=== PATIENT | female | born 1985 | race Caucasian/White ===

== ENCOUNTER 2016-11-17 11:03 | Outpatient (CLI) | payer MEDICAID ==
[2016-11-17 12:34] LABS: ABSOLUTE LYMPHOCYTES (AUTO) 1.5 10^3/uL (0.5-4.7); ABSOLUTE MONOCYTES (AUTO) 0.5 10^3/uL (0.1-1.4); ABSOLUTE NEUT (AUTO) 5.5 10^3/uL (1.7-8.2); BASOPHILS % (AUTO) 0.3 % (0-2); EOSINOPHILS % (AUTO) 0.4 % (0-6); HEMATOCRIT 32.2 % (36.0-47.0); HGB HCT DIFFERENCE 0.8; LYMPHOCYTES % (AUTO) 19.8 % (13-45); MEAN CORPUSCULAR HEMOGLOBIN 30.2 pg (27.0-33.4); MEAN CORPUSCULAR HGB CONC 34.2 g/dL (32.0-36.0); MEAN CORPUSCULAR VOLUME 88 fl (80-97); MONOCYTES % (AUTO) 6.2 % (3-13); RED BLOOD COUNT 3.64 10^6/uL (3.72-5.28); RED CELL DISTRIBUTION WIDTH 13.6 % (11.5-14.0); SEGMENTED NEUTROPHILS % (AUTO) 73.3 % (42-78); WHITE BLOOD COUNT 7.5 10^3/uL (4.0-10.5)
[2016-11-17 12:39] LABS: APPEARANCE,URINE SLIGHTLY-CLOUDY; BILIRUBIN,URINE NEGATIVE (NEGATIVE); GLUCOSE, URINE NEGATIVE (NEGATIVE); KETONES,URINE NEGATIVE (NEGATIVE); LEUKOCYTE ESTERASE,URINE LARGE (NEGATIVE); NITRITE,URINE NEGATIVE (NEGATIVE); PROTEIN,URINE NEGATIVE (NEGATIVE); URINE SPECIFIC GRAVITY 1.002; UROBILINOGEN,URINE NEGATIVE mg/dL (<2.0)
[2016-11-17 12:53] LABS: ALANINE AMINOTRANSFERASE 41 U/L (9-52); ALBUMIN 3.5 g/dL (3.5-5.0); ALKALINE PHOSPHATASE 89 U/L (38-126); ANION GAP 10 (5-19); ASPARTATE AMINO TRANSFERASE 23 U/L (14-36); BILIRUBIN,DIRECT 0.4 mg/dL (0.0-0.4); BILIRUBIN,TOTAL 0.6 mg/dL (0.2-1.3); BLOOD UREA NITROGEN 7 mg/dL (7-20); CALCIUM 9.1 mg/dL (8.4-10.2); CARBON DIOXIDE 21 mmol/L (22-30); CHLORIDE 107 mmol/L (98-107); CREATININE RESULT 0.57 mg/dL (0.52-1.25); GLUCOSE 93 mg/dL (75-110); LDH 378 U/L (313-618); POTASSIUM 4.3 mmol/L (3.6-5.0); SODIUM 137.5 mmol/L (137-145); TOTAL PROTEIN 6.6 g/dL (6.3-8.2); URIC ACID 5.3 mg/dL (2.5-6.2)
[2016-11-17 13:04] LABS: URINE BARBITURATES SCREEN NEGATIVE; URINE METHADONE SCREEN NEGATIVE; URINE OPIATES LOW NEGATIVE; URINE PHENCYCLIDINE SCREEN NEGATIVE
[2016-11-17 13:09] LABS: URINE CREATININE 15.1 mg/dL (16-327); URINE PROTEIN 15.1 mg/dL (<12)
== END 2016-11-17 13:25 | disposition home or self-care (01) ==
LOC: LC 11:03
PROVIDERS: ATTEND Student in an Organized Health Care Education/Training Program
PROC: 4A1HXCZ Monitoring of Products of Conception, Cardiac Rate, External Approach (ICD-10-PCS; principal; 2016-11-17)
DX: Z34.93 Encounter for supervision of normal pregnancy, unspecified, third trimester (principal); Z36 Encounter for antenatal screening of mother; Z3A.33 33 weeks gestation of pregnancy
CPT/HCPCS: 36415; 59025; 80053; 80307; 81001; 82570; 83615; 84156; 84550; 85025

== ENCOUNTER 2016-12-02 11:26 | Outpatient (CLI) | payer MEDICAID ==
[~2016-12-02 11:26] MED LIST: FERRIC CARBOXYMALTOSE 750 MG in NORMAL SALINE 250 ML IV PRN; NORMAL SALINE 250 ML IV PRN
[2016-12-02 11:44] VITALS: BP 132/83
== END 2016-12-02 12:18 | disposition home or self-care (01) ==
LOC: II 11:26 → 5TH 11:26 → II 12:18
PROVIDERS: ATTEND Internal Medicine
PROC: 3E033GC Introduction of Other Therapeutic Substance into Peripheral Vein, Percutaneous Approach (ICD-10-PCS; principal; 2016-12-02)
DX: D50.8 Other iron deficiency anemias (principal); K90.9 Intestinal malabsorption, unspecified
CPT/HCPCS: 96365; J7050; J1439

== ENCOUNTER → 2016-12-07 | Outpatient (CLI) | payer MEDICAID ==
--- NOTE | 2016-12-07 17:02 | RADIOLOGY REPORT (SQ) ---
EXAM DESCRIPTION: CHEST PA/LATERAL COMPLETED DATE/TIME: 12/07/2016 4:51 pm REASON FOR STUDY: COUGH,WHEEZING COMPARISON: 10/12/2011 EXAM PARAMETERS: NUMBER OF VIEWS: two views TECHNIQUE: Digital Frontal and Lateral radiographic views of the chest acquired. RADIATION DOSE: NA LIMITATIONS: none FINDINGS: LUNGS AND PLEURA: No opacities, masses or pneumothorax. No pleural effusion. MEDIASTINUM AND HILAR STRUCTURES: No masses or contour abnormalities. HEART AND VASCULAR STRUCTURES: Heart normal size. No evidence for failure. BONES: No acute findings. HARDWARE: None in the chest. OTHER: No other significant finding. IMPRESSION: NO SIGNIFICANT RADIOGRAPHIC FINDING IN THE CHEST. TECHNICAL DOCUMENTATION: JOB ID: [id number] [facility]- All Rights Reserved
== END ==
LOC: OD 16:27
PROVIDERS: ATTEND Advanced Practice Midwife
DX: R05 Cough (principal); R06.2 Wheezing; Z33.1 Pregnant state, incidental
CPT/HCPCS: 71020

== ENCOUNTER 2016-12-09 11:02 | Outpatient (CLI) | payer MEDICAID ==
[2016-12-09 11:55] VITALS: BP 100/50
== END 2016-12-09 13:21 | disposition home or self-care (01) ==
LOC: II 11:02 → 5TH 11:07 → II 13:21
PROVIDERS: ATTEND Internal Medicine
PROC: 3E033GC Introduction of Other Therapeutic Substance into Peripheral Vein, Percutaneous Approach (ICD-10-PCS; principal; 2016-12-09)
DX: D50.8 Other iron deficiency anemias (principal); K90.9 Intestinal malabsorption, unspecified
CPT/HCPCS: 96365; J7050; J1439

== ENCOUNTER 2016-12-15 10:40 | Inpatient (IN) | payer MEDICAID ==
[2016-12-15 11:55] LABS: APPEARANCE,URINE SLIGHTLY-CLOUDY; BILIRUBIN,URINE NEGATIVE (NEGATIVE); GLUCOSE, URINE NEGATIVE (NEGATIVE); KETONES,URINE NEGATIVE (NEGATIVE); LEUKOCYTE ESTERASE,URINE LARGE (NEGATIVE); NITRITE,URINE NEGATIVE (NEGATIVE); PROTEIN,URINE NEGATIVE (NEGATIVE); URINE SPECIFIC GRAVITY 1.006; UROBILINOGEN,URINE NEGATIVE mg/dL (<2.0)
[2016-12-15 12:08] LABS: HEMATOCRIT 32.5 % (36.0-47.0); HEMOGLOBIN 10.8 g/dL (12.0-15.5); HGB HCT DIFFERENCE -0.1; MEAN CORPUSCULAR HEMOGLOBIN 30.2 pg (27.0-33.4); MEAN CORPUSCULAR HGB CONC 33.4 g/dL (32.0-36.0); MEAN CORPUSCULAR VOLUME 91 fl (80-97); RED BLOOD COUNT 3.59 10^6/uL (3.72-5.28); RED CELL DISTRIBUTION WIDTH 13.9 % (11.5-14.0); WHITE BLOOD COUNT 7.5 10^3/uL (4.0-10.5)
[2016-12-15 12:16] LABS: URINE BARBITURATES SCREEN NEGATIVE; URINE METHADONE SCREEN NEGATIVE; URINE OPIATES LOW NEGATIVE; URINE PHENCYCLIDINE SCREEN NEGATIVE
[2016-12-15 12:25] LABS: URINE CREATININE 47.2 mg/dL (16-327); URINE PROTEIN 11.3 mg/dL (<12)
[2016-12-15 12:26] LABS: ALANINE AMINOTRANSFERASE 65 U/L (9-52); ALBUMIN 3.5 g/dL (3.5-5.0); ALKALINE PHOSPHATASE 113 U/L (38-126); ANION GAP 10 (5-19); ASPARTATE AMINO TRANSFERASE 46 U/L (14-36); BILIRUBIN,DIRECT 0.2 mg/dL (0.0-0.4); BILIRUBIN,TOTAL 0.6 mg/dL (0.2-1.3); BLOOD UREA NITROGEN 7 mg/dL (7-20); CALCIUM 8.9 mg/dL (8.4-10.2); CARBON DIOXIDE 21 mmol/L (22-30); CHLORIDE 106 mmol/L (98-107); CREATININE RESULT 0.56 mg/dL (0.52-1.25); GLUCOSE 88 mg/dL (75-110); LDH 475 U/L (313-618); POTASSIUM 4.2 mmol/L (3.6-5.0); SODIUM 137.4 mmol/L (137-145); TOTAL PROTEIN 6.5 g/dL (6.3-8.2); URIC ACID 6.1 mg/dL (2.5-6.2)
[2016-12-15 12:36] LABS: BAND NEUTROPHILS % (MANUAL) 1 % (3-5); BASOPHILS % (MANUAL) 0 % (0-2); EOSINOPHILS % (MANUAL) 0 % (0-6); LYMPHOCYTES % (MANUAL) 18 % (13-45); POLYCHROMASIA SLIGHT; TOTAL CELLS COUNTED 100
--- NOTE | 2016-12-15 12:55 | Non Stress Test Report ---
Non Stress Test Datetime Report Generated by CPN: 12/15/2016 12:55 DEMOGRAPHIC EGA NST: 37.4 EGA NST: 33.4 INDICATION Indication for Study: Ordered by Provider Indication for Study: Ordered by Provider MONITORING Monitor Explained: Monitor Explained; Test Explained; Patient Verbalized Understanding Monitor Explained: Monitor Explained; Test Explained; Patient Verbalized Understanding Time on Monitor: 12/15/2016 11:11 Time on Monitor: 11/17/2016 11:17 Time off Monitor: 12/15/2016 12:52 Time off Monitor: 11/17/2016 12:08 NST Duration: 101 NST Duration: 51 NST INTERVENTIONS NST Interventions: PO Hydration; Reposition Patient NST Interventions: None Physician Notified NST: Dr. Oliveros Physician Notified NST: Dr. Oliveros BABY A: [id number] BABY A Movement : Present Movement : Present Contraction Frequency : 0 Contraction Frequency : none FHR Baseline : 135 FHR Baseline : 135 Accelerations : 15X15 Accelerations : 15X15 Decelerations : None Decelerations : None Variability : Moderate 6-25bpm Variability : Moderate 6-25bpm NST Review: Meets Criteria for Reactive NST NST Review: Meets Criteria for Reactive NST NST Review and Verified By : Selina Cazares RN NST Results: Reactive NST Results: Reactive NST REPORT Report Trigger: Send Report
--- NOTE | 2016-12-15 15:51 | Admission Physical ---
Datetime Report Generated by CPN: 12/15/2016 15:51 ALLERGIES Medication Allergies: No Medication Allergies: No Known Allergies (11/17/2016) Medication Allergies: No Known Allergies (06/28/2012) Latex: No Latex Allergies OBSTETRICAL HISTORY EDC: 01/01/2017 00:00 : 2 Para: 1 Term: 1 : 0 SAB: 0 IAB: 0 Ectopic: 0 Livin Cesareans: 1 VBACs: 0 Multiple Births: 0 Gestational Diabetes: No Rh Sensitization: No Incompetent Cervix: No DONTA: No Infertility: No ART Treatment: No Uterine Anomaly: No IUGR: No Hx Previous C/S: Yes Macrosomia: No Hx Loss/Stillborn: No PIH: Yes Hx : No Placenta Previa/Abruption: No Depression/PP Depression: No PTL/PROM: No Post Hemorrhage: No Current Procedures: Ultrasound; NST Obstetrical History Comments: 2008- primary c/s for failed induction for preeclampsia G2- anemia, labile blood pressures SEE RECORDS Alcohol: No Marijuana : No Cocaine: No Other Illicit Drugs: No Cigarettes: Former Smoker. 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
--- NOTE | 2016-12-15 15:53 | Admission Physical ---
Datetime Report Generated by CPN: 12/15/2016 15:53 CURRENT ADMISSION Hx Assessment: The History has been Reviewed and is Current Chief Complaint: Other Chief Complaint Other: sent over from office for PIH work up Indication for Induction: Not Applicable Admit Plan: Admit to Unit; Observation/Evaluation ALLERGIES Medication Allergies: No Medication Allergies: No Known Allergies (11/17/2016) Medication Allergies: No Known Allergies (06/28/2012) Latex: No Latex Allergies OBSTETRICAL HISTORY EDC: 01/01/2017 00:00 : 2 Para: 1 Term: 1 : 0 SAB: 0 IAB: 0 Ectopic: 0 Livin Cesareans: 1 VBACs: 0 Multiple Births: 0 Gestational Diabetes: No Rh Sensitization: No Incompetent Cervix: No DONTA: No Infertility: No ART Treatment: No Uterine Anomaly: No IUGR: No Hx Previous C/S: Yes Macrosomia: No Hx Loss/Stillborn: No PIH: Yes Hx : No Placenta Previa/Abruption: No Depression/PP Depression: No PTL/PROM: No Post Hemorrhage: No Current Procedures: Ultrasound; NST Obstetrical History Comments: 2008- primary c/s for failed induction for preeclampsia G2- anemia, labile blood pressures SEE RECORDS Alcohol: No Marijuana : No Cocaine: No Other Illicit Drugs: No Cigarettes: Former Smoker. 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 Pt has hx of previous c/s. States active baby, denies leaking of fluidor vaginal bleeding, denies headache, epigastric pain or visual disturbances. See hx for complete hx Pt has only a left kidney. Slight elevatation in liver enzymes today and along with plt of 117. Will keep pt for observation Serial BP, labs, and 24 urine NST q. shift Regular diet PLANS FOR LABOR AND DELIVERY Labor and Delivery: None Pain Management: Epidural Feeding Preference: Both Benefit of Breast Feed Discussed: Yes Circumcision: Yes INFORMED CONSENT Assignment: Arlene Oliveros MD Signature: with User ID: Danny : with User ID: Danny
[2016-12-15 20:02] LABS: ABSOLUTE LYMPHOCYTES (AUTO) 1.4 10^3/uL (0.5-4.7); ABSOLUTE MONOCYTES (AUTO) 0.4 10^3/uL (0.1-1.4); ABSOLUTE NEUT (AUTO) 5.5 10^3/uL (1.7-8.2); BASOPHILS % (AUTO) 0.2 % (0-2); EOSINOPHILS % (AUTO) 0.5 % (0-6); HEMATOCRIT 32.4 % (36.0-47.0); HEMOGLOBIN 10.8 g/dL (12.0-15.5); LYMPHOCYTES % (AUTO) 18.8 % (13-45); MEAN CORPUSCULAR HEMOGLOBIN 30.4 pg (27.0-33.4); MEAN CORPUSCULAR HGB CONC 33.3 g/dL (32.0-36.0); MEAN CORPUSCULAR VOLUME 91 fl (80-97); MONOCYTES % (AUTO) 5.6 % (3-13); RED BLOOD COUNT 3.55 10^6/uL (3.72-5.28); RED CELL DISTRIBUTION WIDTH 14.1 % (11.5-14.0); SEGMENTED NEUTROPHILS % (AUTO) 74.9 % (42-78); WHITE BLOOD COUNT 7.4 10^3/uL (4.0-10.5)
[2016-12-15 20:22] LABS: ALANINE AMINOTRANSFERASE 62 U/L (9-52); ALBUMIN 3.4 g/dL (3.5-5.0); ALKALINE PHOSPHATASE 107 U/L (38-126); ANION GAP 9 (5-19); ASPARTATE AMINO TRANSFERASE 43 U/L (14-36); BILIRUBIN,DIRECT 0.3 mg/dL (0.0-0.4); BILIRUBIN,TOTAL 0.7 mg/dL (0.2-1.3); BLOOD UREA NITROGEN 7 mg/dL (7-20); CARBON DIOXIDE 22 mmol/L (22-30); CHLORIDE 105 mmol/L (98-107); CREATININE RESULT 0.57 mg/dL (0.52-1.25); GLUCOSE 79 mg/dL (75-110); POTASSIUM 3.8 mmol/L (3.6-5.0); SODIUM 136.4 mmol/L (137-145); TOTAL PROTEIN 6.3 g/dL (6.3-8.2); URIC ACID 6.4 mg/dL (2.5-6.2)
[2016-12-15] MEDS ORDERED: DEXAMETHASONE SOD PHOS INJ 10 MG/1 ML VIAL IV ONE (22:45)
--- NOTE | 2016-12-15 23:08 | PDOC PROGRESS REPORT ---
Subjective Progress Note for:: 12/15/16 Subjective:: Pt had repeat labs. BPs wnl normal limits. GHTN per records with normal 24 hr UTP. Pt admitted for 24 hr UTP. Protein/Cr ratio wnl. LFTs only minimally elevated. However platlets decreased. Pt with known Gestational Thrombocytopenia and hematology aware of her. Physical Exam - Physical Exam Vital Signs: Temp Pulse Resp BP Pulse Ox 98.0 F 93 18 131/84 H 12/15/16 20:36 12/15/16 20:36 12/15/16 20:36 12/15/16 20:36 Intake & Output 12/14/16 12/15/16 12/16/16 06:59 06:59 06:59 Weight 101.15 kg General appearance: PRESENT: no acute distress, well-developed, well-nourished Head exam: PRESENT: atraumatic, normocephalic Respiratory exam: PRESENT: symmetrical, unlabored Cardiovascular exam: PRESENT: RRR. ABSENT: diastolic murmur, rubs, systolic murmur Rectal exam: PRESENT: deferred Extremities exam: PRESENT: full ROM. ABSENT: calf tenderness, clubbing, pedal edema Neurological exam: PRESENT: alert, awake, oriented to person, oriented to place , oriented to time, oriented to situation, CN II-XII grossly intact. ABSENT: motor sensory deficit Psychiatric exam: PRESENT: appropriate affect, normal mood. ABSENT: homicidal ideation, suicidal ideation Skin exam: PRESENT: dry, intact, warm. ABSENT: cyanosis, rash Result Laboratory Results: 12/15/16 17:22 12/15/16 17:22 12/15/16 12/15/16 12/15/16 11:08 11:38 11:38 WBC 7.5 RBC 3.59 L Hgb 10.8 L Hct 32.5 L MCV 91 MCH 30.2 MCHC 33.4 RDW 13.9 Plt Count 116 L Seg Neutrophils % Not Reportable Lymphocytes % Not Reportable Monocytes % Not Reportable Eosinophils % Not Reportable Basophils % Not Reportable Absolute Neutrophils Not Reportable Absolute Lymphocytes Not Reportable Absolute Monocytes Not Reportable Absolute Eosinophils Not Reportable Absolute Basophils Not Reportable Sodium 137.4 Potassium 4.2 Chloride 106 Carbon Dioxide 21 L Anion Gap 10 BUN 7 Creatinine 0.56 Est GFR ( Amer) > 60 Est GFR (Non-Af Amer) > 60 Glucose 88 Uric Acid 6.1 Calcium 8.9 Total Bilirubin 0.6 AST 46 H ALT 65 H Alkaline Phosphatase 113 Total Protein 6.5 Albumin 3.5 Urine Color YELLOW Urine Appearance SLIGHTLY-CLOUDY Urine pH 7.0 Ur Specific [place] 1.006 Urine Protein NEGATIVE Urine Glucose (UA) NEGATIVE Urine Ketones NEGATIVE Urine Blood NEGATIVE Urine Nitrite NEGATIVE Ur Leukocyte Esterase LARGE H Urine WBC (Auto) 3 Urine RBC (Auto) 0 12/15/16 12/15/16 17:22 17:22 WBC 7.4 RBC 3.55 L Hgb 10.8 L Hct 32.4 L MCV 91 MCH 30.4 MCHC 33.3 RDW 14.1 H Plt Count 107 L Seg Neutrophils % 74.9 Lymphocytes % 18.8 Monocytes % 5.6 Eosinophils % 0.5 Basophils % 0.2 Absolute Neutrophils 5.5 Absolute Lymphocytes 1.4 Absolute Monocytes 0.4 Absolute Eosinophils 0.0 Absolute Basophils 0.0 Sodium 136.4 L Potassium 3.8 Chloride 105 Carbon Dioxide 22 Anion Gap 9 BUN 7 Creatinine 0.57 Est GFR ( Amer) > 60 Est GFR (Non-Af Amer) > 60 Glucose 79 Uric Acid 6.4 H Calcium 9.0 Total Bilirubin 0.7 AST 43 H ALT 62 H Alkaline Phosphatase 107 Total Protein 6.3 Albumin 3.4 L Urine Color Urine Appearance Urine pH Ur Specific [place] Urine Protein Urine Glucose (UA) Urine Ketones Urine Blood Urine Nitrite Ur Leukocyte Esterase Urine WBC (Auto) Urine RBC (Auto) Assessment & Plan - Diagnosis (1) Gestational thrombocytopenia without hemorrhage in third trimester Plan: Known Gestational Thrombocytopenia - Heme Onc REferral. S/w Dr. Christina with [facility] re: low platlets and that I am recommending to proceed with C/S in am for GHTN. Dr. Christina agreed that 107K ok for c/s but is ok with steroids for help with platlet count to facilitate spinal. She recommended IV Decadron. Pt informed re: plan of care and agrees with plan of care. (2) Gestational hypertension Qualifiers: Trimester: third trimester Qualified Code(s): O13.3 - Gestational [ -induced] hypertension without significant proteinuria, third trimester Is this a current diagnosis for this admission?: YesPlan: BPs wnl range at this time. Prior 24 hr UTP wnl. Reviewed recommend repeat labs in am and proceeding with Repeat C/S in am. R/B/A reviewed and pt desires to proceed with planned procedure. - Time Time Spent with patient: 15-24 minutes Critical Time spent with patient: Less than 15 minutes Medications reviewed and adjusted accordingly: Yes Anticipated discharge: Home Within: within 72 hours - Inpatient Certification Based on my medical assessment, after consideration of the patient's comorbidities, presenting symptoms, or acuity I expect that the services needed warrant INPATIENT care.: Yes I certify that my determination is in accordance with my understanding of Medicare's requirements for reasonable and necessary INPATIENT services [42 CFR 412.3e].: Yes Medical Necessity: Need Close Monitoring Due to Risk of Patient Decompensation, Need For IV Fluids, Need for Surgery Post Hospital Care: D/C Oracle Architect Documentation
[2016-12-15] MEDS ORDERED: RINGERS SOLUTION,LACTATED 1,000 ML IV PRN (23:22)
[2016-12-15] MEDS ORDERED: ZOLPIDEM TARTRATE 5 MG TABLET PO PRN (23:23)
[2016-12-15] MEDS ORDERED: RINGERS SOLUTION,LACTATED 1,000 ML IV ONE (23:30)
[2016-12-16 00:01] LABS: ALANINE AMINOTRANSFERASE 61 U/L (9-52); ALBUMIN 3.5 g/dL (3.5-5.0); ALKALINE PHOSPHATASE 120 U/L (38-126); ANION GAP 10 (5-19); ASPARTATE AMINO TRANSFERASE 43 U/L (14-36); BILIRUBIN,DIRECT 0.3 mg/dL (0.0-0.4); BILIRUBIN,TOTAL 0.4 mg/dL (0.2-1.3); BLOOD UREA NITROGEN 8 mg/dL (7-20); CARBON DIOXIDE 23 mmol/L (22-30); CHLORIDE 103 mmol/L (98-107); CREATININE RESULT 0.61 mg/dL (0.52-1.25); GLUCOSE 107 mg/dL (75-110); POTASSIUM 3.7 mmol/L (3.6-5.0); SODIUM 135.9 mmol/L (137-145); TOTAL PROTEIN 6.5 g/dL (6.3-8.2)
[2016-12-16] MEDS ORDERED: DEXAMETHASONE SOD PHOS INJ 10 MG/1 ML VIAL ONE (00:32)
[2016-12-16 05:18] LABS: HEMATOCRIT 34.2 % (36.0-47.0); HEMOGLOBIN 11.4 g/dL (12.0-15.5); MEAN CORPUSCULAR HEMOGLOBIN 30.2 pg (27.0-33.4); MEAN CORPUSCULAR HGB CONC 33.3 g/dL (32.0-36.0); MEAN CORPUSCULAR VOLUME 91 fl (80-97); RED BLOOD COUNT 3.77 10^6/uL (3.72-5.28); RED CELL DISTRIBUTION WIDTH 14.3 % (11.5-14.0); WHITE BLOOD COUNT 6.7 10^3/uL (4.0-10.5)
[2016-12-16 05:22] LABS: PROTHROMBIN TIME 11.7 SEC (11.4-15.4)
[2016-12-16 05:41] LABS: ALANINE AMINOTRANSFERASE 71 U/L (9-52); ALBUMIN 3.6 g/dL (3.5-5.0); ALKALINE PHOSPHATASE 128 U/L (38-126); ANION GAP 10 (5-19); ASPARTATE AMINO TRANSFERASE 48 U/L (14-36); BILIRUBIN,DIRECT 0.3 mg/dL (0.0-0.4); BILIRUBIN,TOTAL 0.4 mg/dL (0.2-1.3); BLOOD UREA NITROGEN 7 mg/dL (7-20); CALCIUM 9.2 mg/dL (8.4-10.2); CARBON DIOXIDE 21 mmol/L (22-30); CHLORIDE 106 mmol/L (98-107); CREATININE RESULT 0.59 mg/dL (0.52-1.25); GLUCOSE 144 mg/dL (75-110); POTASSIUM 4.4 mmol/L (3.6-5.0); SODIUM 137.3 mmol/L (137-145); TOTAL PROTEIN 6.6 g/dL (6.3-8.2); URIC ACID 6.4 mg/dL (2.5-6.2)
[2016-12-16] MEDS ORDERED: CEFAZOLIN 2 GM/D5W RTU 2 GM/50 ML RTUPB IV PRN (05:44)
[2016-12-16] MEDS ORDERED: FENTANYL CITRATE INJ/PF 250 MCG/5 ML AMPULE ONE (07:16)
[2016-12-16] MEDS ORDERED: EPHEDRINE SULFATE INJ 50 MG/1 ML AMPULE ONE (07:16)
[2016-12-16] MEDS ORDERED: MIDAZOLAM 2 MG/2 ML INJ ONE (07:16)
[2016-12-16] MEDS ORDERED: PROPOFOL INJ 200 MG/20 ML VIAL IV ONE (07:17)
[2016-12-16] MEDS ORDERED: ACETAMINOPHEN 100 ML IV ONE (07:17)
[2016-12-16] MEDS ORDERED: OXYTOCIN/NORMAL SALINE 20 UNIT/1,000 ML RTUINJ ONE (07:33)
[2016-12-16] MEDS ORDERED: OXYTOCIN 10 UNIT/ML VIAL ONE (07:33)
[2016-12-16] MEDS ORDERED: ALBUTEROL SULFATE HFA (90 MCG/PUFF) 200 PUFF/8.5 GM MDI IH ONE (07:46)
[2016-12-16] MEDS ORDERED: FENTANYL CITRATE INJ/PF 100 MCG/2 ML AMPUL IV PRN ×3 (07:55)
[2016-12-16] MEDS ORDERED: PROMETHAZINE HCL INJ 25 MG/1 ML VIAL IV PRN ×2 (07:55)
[2016-12-16] MEDS ORDERED: ONDANSETRON HCL INJ/PF 4 MG/2 ML SDV IV PRN ×2 (07:55→10:23)
[2016-12-16] MEDS ORDERED: MORPHINE SULFATE 10 MG/ML INJ IV PRN (07:55)
[2016-12-16] MEDS ORDERED: MEPERIDINE HCL/PF INJ 25 MG/1 ML DISP.SYRIN IV PRN (07:55)
[2016-12-16] MEDS ORDERED: DIPHENHYDRAMINE HCL 50 MG/ML VIAL IV PRN (07:55)
[2016-12-16] MEDS ORDERED: ALBUTEROL SULFATE 0.083% NEB 2.5 MG/3 ML AMPUL NEB ONE ×2 (08:00)
[2016-12-16] MEDS ORDERED: BUPIVACAINE HCL 0.25 % INJ/PF (2.5 MG/1 ML) 30 ML VIAL ONE (08:06)
[2016-12-16] MEDS ORDERED: BUPIVACAINE INJ/PF LIPOSOME/PF 266 MG/20 ML SDV ONE (08:07)
[2016-12-16] MEDS ORDERED: METHYLERGONOVINE MALEATE INJ/PF 0.2 MG/1 ML AMPULE ONE (08:08)
[2016-12-16] MEDS ORDERED: MISOPROSTOL 0.2 MG TABLET ONE (08:08)
[2016-12-16] MEDS ORDERED: OXYTOCIN/NORMAL SALINE 20 UNIT/1,000 ML RTUINJ INJ PRN (10:22)
[2016-12-16] MEDS ORDERED: HYDROMORPHONE HCL INJ/PF 2 MG/ML AMPULE IV PRN (10:22)
[2016-12-16] MEDS ORDERED: PROMETHAZINE HCL INJ 25 MG/1 ML VIAL IM PRN (10:22)
[2016-12-16] MEDS ORDERED: DIPH/PERTUSS(ACELL)/TETANUS VAC/PF 0.5 ML SYR (>=10YO) IM PRN (10:22)
[2016-12-16] MEDS ORDERED: ACETAMINOPHEN 325 MG TABLET PO PRN (10:22)
[2016-12-16] MEDS ORDERED: OXYCODONE-ACETAMINOPHEN 5-325 MG TABLET PO PRN (10:22)
[2016-12-16] MEDS ORDERED: SIMETHICONE 80 MG TAB.CHEW PO PRN (10:22)
[2016-12-16] MEDS ORDERED: MEASLES,MUMPS&RUBELLA VACC/PF 0.5 ML VIAL SUBCUT PRN (10:22)
[2016-12-16] MEDS: FENTANYL CITRATE INJ/PF 100 MCG/2 ML AMPUL ONE ×3 (10:35→11:27)
[2016-12-16] MEDS ORDERED: ALBUTEROL SULFATE 0.083% NEB 2.5 MG/3 ML AMPUL NEB PRN (12:34)
[2016-12-16] MEDS: DOCUSATE SODIUM 100 MG CAPSULE PO SCH (17:52)
[2016-12-16] MEDS: OXYCODONE-ACETAMINOPHEN 5-325 MG TABLET PO PRN ×2 (18:37→22:41)
[2016-12-16] MEDS ORDERED: METOCLOPRAMIDE HCL INJ/PF 10 MG/2 ML SDV ONE (18:43)
[2016-12-16] MEDS ORDERED: DEXAMETHASONE SOD PHOSPHATE INJ 4 MG/1 ML VIAL ONE (18:43)
[2016-12-16] MEDS ORDERED: ONDANSETRON HCL INJ/PF 4 MG/2 ML SDV ONE (18:43)
[2016-12-16] MEDS ORDERED: ZOLPIDEM TARTRATE 5 MG TABLET PO SCH (22:00)
[2016-12-17] MEDS: OXYCODONE-ACETAMINOPHEN 5-325 MG TABLET PO PRN ×5 (03:08→21:50)
[2016-12-17 06:38] LABS: HEMATOCRIT 24.6 % (36.0-47.0); HGB HCT DIFFERENCE 0.3; MEAN CORPUSCULAR HEMOGLOBIN 30.6 pg (27.0-33.4); MEAN CORPUSCULAR HGB CONC 33.8 g/dL (32.0-36.0); MEAN CORPUSCULAR VOLUME 91 fl (80-97); RED BLOOD COUNT 2.71 10^6/uL (3.72-5.28); RED CELL DISTRIBUTION WIDTH 14.2 % (11.5-14.0); WHITE BLOOD COUNT 9.8 10^3/uL (4.0-10.5)
[2016-12-17 06:45] LABS: ALANINE AMINOTRANSFERASE 56 U/L (9-52); ALBUMIN 2.7 g/dL (3.5-5.0); ALKALINE PHOSPHATASE 74 U/L (38-126); ANION GAP 7 (5-19); ASPARTATE AMINO TRANSFERASE 87 U/L (14-36); BILIRUBIN,DIRECT 0.2 mg/dL (0.0-0.4); BILIRUBIN,TOTAL 0.5 mg/dL (0.2-1.3); BLOOD UREA NITROGEN 7 mg/dL (7-20); CALCIUM 8.6 mg/dL (8.4-10.2); CARBON DIOXIDE 23 mmol/L (22-30); CHLORIDE 105 mmol/L (98-107); CREATININE RESULT 0.61 mg/dL (0.52-1.25); GLUCOSE 89 mg/dL (75-110); LDH 609 U/L (313-618); POTASSIUM 3.9 mmol/L (3.6-5.0); SODIUM 135.1 mmol/L (137-145); TOTAL PROTEIN 5.1 g/dL (6.3-8.2)
[2016-12-17 07:18] LABS: HEMOGLOBIN 8.3 g/dL (12.0-15.5)
[2016-12-17] MEDS: DOCUSATE SODIUM 100 MG CAPSULE PO SCH ×2 (09:22→17:05)
[2016-12-17] MEDS: PRENATAL VITAMIN W-O CA NO5/FE FUMARATE/FA CAPSULE PO SCH (09:22)
--- NOTE | 2016-12-17 10:24 | PDOC PROGRESS REPORT ---
Subjective-OB Subjective: Post Delivery Day: 31 year old. Denies any needs at this time pt doing well, OOB in halls, Dr. Jaime in to talk with pt. and discuss POC, voiding, pain under control Physical Exam (OB) Vital Signs: Temp Pulse Resp BP Pulse Ox 98.2 F 86 15 127/87 H 98 12/17/16 07:50 12/17/16 07:50 12/17/16 07:50 12/17/16 07:50 12/17/16 07:50 Intake & Output 12/16/16 12/17/16 12/18/16 06:59 06:59 06:59 Intake Total 5500 1600 Output Total 4275 Balance 1225 1600 Weight 225 kg 102.058 kg - PIH/Pre-Eclampsia DTR's: 2 + Clonus: Negative Headache: Absent Epigastric Pain: No Visual Changes: No - Dressing Removed: No Incision: Dressing, Well Approximated Closure Type: op site - Lochia Lochia Amount: Small 10-25 ml Lochia Color: Rubra/Red - Abdomen Description: Tender, Soft, Round Hernia Present: No Fundal Description: Firm, Midline Fundal Height: u/u - u/2 Objective-Diagnostic Laboratory: 12/17/16 06:05 12/17/16 06:05 12/17/16 12/17/16 06:05 06:05 WBC 9.8 RBC 2.71 L Hgb 8.3 L D Hct 24.6 L MCV 91 MCH 30.6 MCHC 33.8 RDW 14.2 H Plt Count 88 L Sodium 135.1 L Potassium 3.9 Chloride 105 Carbon Dioxide 23 Anion Gap 7 BUN 7 Creatinine 0.61 Est GFR ( Amer) > 60 Est GFR (Non-Af Amer) > 60 Glucose 89 Calcium 8.6 Total Bilirubin 0.5 AST 87 H ALT 56 H Alkaline Phosphatase 74 Total Protein 5.1 L Albumin 2.7 L Assessment and Plan(PN) - Assessment and Plan (1) Pre-eclampsia Qualifiers: Trimester: third trimester Qualified Code(s): O14.93 - Unspecified pre-eclampsia, third trimester Is this a current diagnosis for this admission?: Yes (2) Anemia associated with acute blood loss Is this a current diagnosis for this admission?: Yes (3) delivery, delivered, current hospitalization Is this a current diagnosis for this admission?: Yes - Time Spent with Patient Time with patient: Less than 15 minutes Medications reviewed and adjusted accordingly: Yes - Disposition Anticipated Discharge: Home Within: within 24 hours
[2016-12-18] MEDS: OXYCODONE-ACETAMINOPHEN 5-325 MG TABLET PO PRN ×3 (02:25→12:58)
[2016-12-18 07:01] LABS: HEMATOCRIT 25.1 % (36.0-47.0); HEMOGLOBIN 8.3 g/dL (12.0-15.5); HGB HCT DIFFERENCE -0.2; MEAN CORPUSCULAR HEMOGLOBIN 30.8 pg (27.0-33.4); MEAN CORPUSCULAR HGB CONC 33.1 g/dL (32.0-36.0); MEAN CORPUSCULAR VOLUME 93 fl (80-97); RED CELL DISTRIBUTION WIDTH 15.1 % (11.5-14.0); WHITE BLOOD COUNT 7.3 10^3/uL (4.0-10.5)
[2016-12-18 07:31] LABS: ALANINE AMINOTRANSFERASE 61 U/L (9-52); ALKALINE PHOSPHATASE 77 U/L (38-126); ANION GAP 8 (5-19); ASPARTATE AMINO TRANSFERASE 69 U/L (14-36); BILIRUBIN,DIRECT 0.3 mg/dL (0.0-0.4); BILIRUBIN,TOTAL 0.4 mg/dL (0.2-1.3); BLOOD UREA NITROGEN 8 mg/dL (7-20); CALCIUM 8.7 mg/dL (8.4-10.2); CARBON DIOXIDE 25 mmol/L (22-30); CHLORIDE 103 mmol/L (98-107); CREATININE RESULT 0.61 mg/dL (0.52-1.25); GLUCOSE 92 mg/dL (75-110); LDH 580 U/L (313-618); POTASSIUM 3.8 mmol/L (3.6-5.0); SODIUM 135.5 mmol/L (137-145); TOTAL PROTEIN 5.6 g/dL (6.3-8.2)
[2016-12-18] MEDS: DOCUSATE SODIUM 100 MG CAPSULE PO SCH (09:52)
[2016-12-18] MEDS: PRENATAL VITAMIN W-O CA NO5/FE FUMARATE/FA CAPSULE PO SCH (09:52)
--- NOTE | 2016-12-18 10:01 | PDOC PROGRESS REPORT ---
Subjective-OB Subjective: Post Delivery Day: 31 year old. Denies any needs at this time Doing well, ready to go home, pain under control, scant bleeding, walking in halls, eating well Physical Exam (OB) Vital Signs: Temp Pulse Resp BP Pulse Ox 98.2 F 94 18 128/76 H 99 12/18/16 07:39 12/18/16 07:39 12/18/16 07:39 12/18/16 07:39 12/18/16 07:39 Intake & Output 12/17/16 12/18/16 12/19/16 06:59 06:59 06:59 Intake Total 5500 2080 Output Total 4275 Balance 1225 2080 Weight 102.058 kg - PIH/Pre-Eclampsia DTR's: 2 + Clonus: Negative Headache: Absent Epigastric Pain: No Visual Changes: No - Dressing Removed: No Incision: Well Approximated Closure Type: op site - Lochia Lochia Amount: Scant < 10 ml Lochia Color: Rubra/Red - Abdomen Description: Tender, Soft, Round Hernia Present: No Fundal Description: Firm, Midline Fundal Height: u/u - u/2 Objective-Diagnostic Laboratory: 12/18/16 06:45 12/18/16 06:45 12/18/16 12/18/16 06:45 06:45 WBC 7.3 RBC 2.70 L Hgb 8.3 L Hct 25.1 L MCV 93 MCH 30.8 MCHC 33.1 RDW 15.1 H Plt Count 108 L Sodium 135.5 L Potassium 3.8 Chloride 103 Carbon Dioxide 25 Anion Gap 8 BUN 8 Creatinine 0.61 Est GFR ( Amer) > 60 Est GFR (Non-Af Amer) > 60 Glucose 92 Uric Acid 6.0 Calcium 8.7 Total Bilirubin 0.4 AST 69 H ALT 61 H Alkaline Phosphatase 77 Total Protein 5.6 L Albumin 3.0 L Assessment and Plan(PN) - Assessment and Plan (1) Pre-eclampsia Qualifiers: Trimester: third trimester Qualified Code(s): O14.93 - Unspecified pre-eclampsia, third trimester Is this a current diagnosis for this admission?: Yes (2) Anemia associated with acute blood loss Is this a current diagnosis for this admission?: Yes (3) delivery, delivered, current hospitalization Is this a current diagnosis for this admission?: Yes (4) Gestational thrombocytopenia without hemorrhage in third trimester Is this a current diagnosis for this admission?: Yes - Time Spent with Patient Medications reviewed and adjusted accordingly: Yes - Disposition Anticipated Discharge: Home Within: Other - home today
--- NOTE | 2016-12-18 10:06 | PDOC DISCHARGE SUMMARY ---
Final Diagnosis Discharge Date: 12/18/16 - Final Diagnosis (1) Pre-eclampsia Is this a current diagnosis for this admission?: Yes (2) Anemia associated with acute blood loss Is this a current diagnosis for this admission?: Yes (3) delivery, delivered, current hospitalization Is this a current diagnosis for this admission?: Yes (4) Gestational thrombocytopenia without hemorrhage in third trimester Is this a current diagnosis for this admission?: Yes Discharge Data - Discharge Medication Home Medications: Pnv No.122/Iron/Folic Acid [ Multi Tablet] 1 tab PO DAILY 11/17/16 Fluticasone Propionate [Flonase Allergy Relief] 9.9 ml NS PRN PRN 12/15/16 Oxycodone HCl/Acetaminophen [Percocet 5-325 mg Tablet] 1 tab PO Q4HP PRN #30 tablet 12/18/16 Gestational Age: 37.5 Reason(s) for Admission: Induction of Labor, PIH Admission Note: has only 1 kidney, Procedures: NST, Ultrasound Intrapartum Procedure(s): : Low Cervical, Transverse - Data Baby 1 Male Home with Mother: Yes Complications: No - Diagnosis Test Laboratory: Temp Pulse Resp BP Pulse Ox 98.2 F 94 18 128/76 H 99 12/18/16 07:39 12/18/16 07:39 12/18/16 07:39 12/18/16 07:39 12/18/16 07:39 12/15/16 12/15/16 12/15/16 11:08 11:38 17:22 RBC 3.59 L 3.55 L Hgb 10.8 L 10.8 L Hct 32.5 L 32.4 L Urine Opiates Screen NEGATIVE 12/15/16 12/16/16 12/17/16 23:15 05:01 06:05 RBC Cancelled 3.77 2.71 L Hgb Cancelled 11.4 L 8.3 L D Hct Cancelled 34.2 L 24.6 L Urine Opiates Screen 12/18/16 06:45 RBC 2.70 L Hgb 8.3 L Hct 25.1 L Urine Opiates Screen - Discharge information/Instructions Discharge Activity: Activity As Tolerated, No Lifting Over 10 Pounds, No Lifting /Push/Pulling, Pelvic Rest Discharge Diet: As Tolerated Disposition: HOME, SELF-CARE Follow up with: [facility] in: 1, Weeks
[2016-12-18 12:45] VITALS: BP 121/68
--- NOTE | 2016-12-18 23:14 | OPERATIVE REPORT E ---
Operative Report NAME: LUKASZ JUNG : 1985 AGE: 31Y DATE OF SURGERY: ROOM: 226 PREOPERATIVE DIAGNOSES: 1. INTRAUTERINE AT 37+ WEEKS WITH GESTATIONAL HYPERTENSION VERSUS PREECLAMPSIA. 2. GESTATIONAL THROMBOCYTOPENIA. 3. HISTORY OF AND DESIRE FOR REPEAT. POSTOPERATIVE DIAGNOSES: 1. INTRAUTERINE AT 37+ WEEKS WITH GESTATIONAL HYPERTENSION VERSUS PREECLAMPSIA. 2. GESTATIONAL THROMBOCYTOPENIA. 3. HISTORY OF AND DESIRE FOR REPEAT. OPERATION: Repeat low transverse cervical section. SURGEON: THU ALEXANDER M.D. ANESTHESIA: General endotracheal due to thrombocytopenia. ESTIMATED BLOOD LOSS: 600 mL. FINDINGS: Doe male infant in vertex presentation with Apgars of 7 and 7. Weight was 7 pounds 0 ounces. Clear amniotic fluid. Normal-appearing uterus, tubes, and ovaries. DESCRIPTION OF PROCEDURE: After discussing risks, benefits and alternatives of the procedure and obtaining informed consent, the patient was taken to the operating room where a Fragoso catheter was placed and she was positioned in a dorsal supine position with a left schofield tilt. She was prepped and draped in the standard fashion. General anesthesia was achieved. A Pfannenstiel skin incision was made and the abdomen was entered in layers in the standard fashion. A low transverse cervical incision was made. The surgeon's hand was entered into the hysterotomy incision and the vertex elevated through the hysterotomy incision. The head did not initially deliver, therefore the left rectus muscles were incised with Bovie cautery. It still did not deliver, therefore, a Kiwi vacuum was applied and pulled with 1 pop and had then just 1 pop-off max pressure of 550, the head was then delivered. A nuchal was reduced. The shoulders and body delivered easily thereafter. The cord was clamped x2 and cut. The was handed to pediatrics who were present. The placenta was manually extracted. The uterus was exteriorized and cleared of all clots and debris. The hysterotomy incision was closed in 2 layers with 0 Monocryl. The uterus, tubes and ovaries were returned to the peritoneal cavity. The cavity was irrigated and hemostasis again assured. A layer of Surgicel was placed over the hysterotomy incision as the patient had had known thrombocytopenia. Next, the peritoneum was closed with 2-0 Vicryl in a pursestring manner. The subfascial spaces were inspected and hemostasis achieved with cautery. The rectus muscles were loosely reapproximated with 2-0 Vicryl in an interrupted fashion. The fascia was closed with #1 Vicryl. The subcutaneous spaces were irrigated and hemostasis achieved with cautery. Exparel 1 vial and 20 mL of Marcaine were injected from the fascia to the level of the skin for postoperative pain control. The subcutaneous tissues were closed with 3-0 plain gut. The skin was closed in a subcuticular fashion with 3-0 Monocryl. An Op-Site dressing was applied. Cytotec 1000 mcg was placed per rectum to help avoid atony given patient's thrombocytopenia. The patient was awakened from anesthesia and taken to recovery in stable condition. All sponge, lap, needle and instrument counts were correct x2. DICTATING PHYSICIAN: THU ALEXANDER M.D. [id number] PHY#: [id number] ID: [id number] JOB#: [id number] ACCT: [id number] cc:THU ALEXANDER M.D. >
--- NOTE | 2016-12-31 09:49 | PDOC DELIVERY SUMMARY ---
Delivery Summary - Maternal Hx : II Hx Para: II Hx # Term Pregnancies: 1 Hx # Pregnancies: 0 Hx Total # of Abortions (Sponateous & Elective): 0 MARÍA: 01/01/17 Gestational Age: 37.5 Ruptured Membranes: AROM Time of Rupture: 08:54 Fluids: Clear - Delivery Presentation: Vertex Heart Rate Monitoring: Done Pre-Operatively Support Person Present: Yes Location: OR Placenta: Within Normal Limits Delivery of Placenta Date: 12/16/16 Delivery of Placenta Time: 08:56 - Medications Type of Anesthesia:: GA - Delivery Medications Delivery Meds: Cytotec 1000mcg Per Rectum/Vagina - Assess and Care Baby 1 Male Delivery of Infant Date: 12/16/16 Delivery of Infant Time: 08:55 at 1 minute: 7 at 5 minutes: 7 Preprinted Number On Band: [id number] Skin to Skin: No To Nursery At: 09:03 Mode of Transport: Bassinet Infant Delivery Weight: 3180 kg Delivery Length: 20 in - Delivery Personnel Laboratory Tech: MELISSA Salas RN: Abelardo SIMON Nursenelida RN: Jimmie NEGRETE RN: GAVIN GILBERT MD: THU ALEXANDER
== END 2016-12-18 13:38 | disposition home or self-care (01) | DRG 765 ==
LOC: LC 10:40 → LR 12:52 → OBSVTOIN 12:52 → INTOOBSV 12:52 → 2S 15:09
PROVIDERS: ADMIT Student in an Organized Health Care Education/Training Program; ATTEND Student in an Organized Health Care Education/Training Program
PROC: 10D00Z1 Extraction of Products of Conception, Low, Open Approach (ICD-10-PCS; principal; 2016-12-16 07:45)
DX: O13.4 Gestational [pregnancy-induced] hypertension without significant proteinuria, complicating childbirth (principal); O99.12 Other diseases of the blood and blood-forming organs and certain disorders involving the immune mechanism complicating childbirth; D62 Acute posthemorrhagic anemia; Z3A.37 37 weeks gestation of pregnancy; Z37.0 Single live birth; D69.6 Thrombocytopenia, unspecified; O99.02 Anemia complicating childbirth
CPT/HCPCS: 1961; 36415; 59025; 80053; 80307; 81001; 82570; 83615; 84156; 84550; 85025; 85027; 85610; 85730; 86850; 86900; 86901; 88307; 94640; 94799; C9290; G0378; G0379; J0131; J1100; J1170; J2210; J2250; J2405; J2590; J2704; J2765; J3010; J3490; J7120

== ENCOUNTER 2017-01-02 21:35 | Emergency (ER) | payer MEDICAID | END 2017-01-02 23:00 | disposition left against medical advice (07) | LOC: ER 21:35 | DX: Z53.21 Procedure and treatment not carried out due to patient leaving prior to being seen by health care provider (principal) ==

== ENCOUNTER 2017-10-24 08:11 | Day surgery (SDC) | payer MEDICAID ==
[2017-10-17 11:23] LABS: HEMATOCRIT 40.5 % (36.0-47.0); HEMOGLOBIN 13.4 g/dL (12.0-15.5); MEAN CORPUSCULAR HEMOGLOBIN 27.5 pg (27.0-33.4); MEAN CORPUSCULAR VOLUME 83 fl (80-97); PLATELET COUNT 202 10^3/uL (150-450); RED BLOOD COUNT 4.86 10^6/uL (3.72-5.28); RED CELL DISTRIBUTION WIDTH 13.7 % (11.5-14.0); WHITE BLOOD COUNT 6.3 10^3/uL (4.0-10.5)
[2017-10-17 13:02] LABS: APPEARANCE,URINE CLEAR; BILIRUBIN,URINE NEGATIVE (NEGATIVE); COLOR,URINE YELLOW; GLUCOSE, URINE NEGATIVE (NEGATIVE); KETONES,URINE NEGATIVE (NEGATIVE); LEUKOCYTE ESTERASE,URINE NEGATIVE (NEGATIVE); NITRITE,URINE NEGATIVE (NEGATIVE); PROTEIN,URINE NEGATIVE (NEGATIVE); UROBILINOGEN,URINE NEGATIVE mg/dL (<2.0)
[~2017-10-24 08:11] MED LIST changes: -FERRIC CARBOXYMALTOSE 750 MG in NORMAL SALINE 250 ML IV PRN; +LACTATED RINGERS 1000 ML IV PRN; -NORMAL SALINE 250 ML IV PRN
[2017-10-24] MEDS ORDERED: NEOSTIGMINE METHYLSULFATE 10 MG/10 ML VIAL ONE (08:31)
[2017-10-24] MEDS ORDERED: LIDOCAINE 2% INJ-PF (20 MG/ML) 2 ML AMPUL ONE (08:31)
[2017-10-24] MEDS ORDERED: GLYCOPYRROLATE INJ 0.4 MG/2 ML VIAL ONE (08:31)
[2017-10-24] MEDS ORDERED: ROCURONIUM BROMIDE INJ 50 MG/5 ML VIAL IV ONE (08:31)
[2017-10-24] MEDS ORDERED: DEXAMETHASONE SOD PHOSPHATE INJ 4 MG/1 ML VIAL ONE (08:31)
[2017-10-24] MEDS ORDERED: ONDANSETRON HCL INJ/PF 4 MG/2 ML SDV ONE (08:31)
[2017-10-24] MEDS ORDERED: SCOPOLAMINE HYDROBROMIDE 1.5 MG PATCH.TD72 ONE (09:08)
[2017-10-24] MEDS ORDERED: MIDAZOLAM 2 MG/2 ML INJ ONE ×2 (09:10→10:19)
[2017-10-24] MEDS ORDERED: PROPOFOL INJ 200 MG/20 ML VIAL IV ONE (10:19)
[2017-10-24] MEDS ORDERED: FENTANYL CITRATE INJ/PF 100 MCG/2 ML AMPUL ONE (10:19)
[2017-10-24] MEDS ORDERED: HYDROMORPHONE HCL INJ/PF 2 MG/ML AMPULE ONE (10:19)
[2017-10-24] MEDS ORDERED: ACETAMINOPHEN 100 ML IV ONE (10:19)
[2017-10-24 10:53] LABS: ANION GAP 9 (5-19); BLOOD UREA NITROGEN 12 mg/dL (7-20); CALCIUM 9.7 mg/dL (8.4-10.2); CARBON DIOXIDE 29 mmol/L (22-30); CHLORIDE 104 mmol/L (98-107); GLUCOSE 106 mg/dL (75-110); POTASSIUM 4.7 mmol/L (3.6-5.0); SODIUM 141.8 mmol/L (137-145)
[2017-10-24] MEDS ORDERED: MEPERIDINE HCL/PF INJ 25 MG/1 ML DISP.SYRIN IV PRN (11:11)
[2017-10-24] MEDS ORDERED: FENTANYL CITRATE INJ/PF 100 MCG/2 ML AMPUL IV PRN ×3 (11:11)
[2017-10-24] MEDS ORDERED: DIPHENHYDRAMINE HCL 50 MG/ML VIAL IV PRN (11:11)
[2017-10-24] MEDS ORDERED: MORPHINE SULFATE 10 MG/ML INJ IV PRN (11:11)
[2017-10-24] MEDS ORDERED: PROMETHAZINE HCL INJ 25 MG/1 ML VIAL IV PRN (11:11)
--- NOTE | 2017-10-24 11:49 | Operative Report ---
Operative Report DATE OF SURGERY: 10/24/17 PREOPERATIVE DIAGNOSIS: Patient desires surgical sterilization POSTOPERATIVE DIAGNOSIS: Same OPERATION: Laparoscopic bilateral tubal cautery SURGEON: DEEPA MAYFIELD ANESTHESIA: GA TISSUE REMOVED OR ALTERED: Fallopian tubes COMPLICATIONS: none ESTIMATED BLOOD LOSS: 10 cc INTRAOPERATIVE FINDINGS: Adhesions of the omentum to the anterior abdominal wall PROCEDURE: The pt was taken to the or and placed in a supine position. General anesthesia was induced. She was placed in a dorsal lithotomy position using narinder stirrups. Her abdomen and perineum were prepared and draped in a sterile fashion. A sponge stick was placed in the vagina for manipulation of the uterus. An incision was made at the umbilcus and the natural umbilical defect was dialated with a joon clamp. A blunt port was placed and laparoscopy confirmed appropriate placement. The abdomen was insulflated with CO2 gas. Each fallopian tube was identified and cauterized at the mid isthmic portion with 5 bites. At the end of the case the gas was allowed to escape and the scope and port were removed. The fascia was closed with a 2-0 vicryl suture and the skin closed with a 4-0 vicryl suture. She was extubated in the or and taken to recovery.
[2017-10-24] MEDS ORDERED: KETOROLAC TROMETHAMINE INJ/PF 30 MG/1 ML SDV ONE (12:10)
[2017-10-24] MEDS ORDERED: OXYCODONE-ACETAMINOPHEN 5-325 MG TABLET ONE (12:29)
[2017-10-24] MEDS ORDERED: OXYCODONE-ACETAMINOPHEN 5-325 MG TABLET PO PRN ×2 (13:08)
[2017-10-24] MEDS ORDERED: RINGERS SOLUTION,LACTATED 1,000 ML IV PRN (13:08)
[2017-10-24] MEDS ORDERED: IBUPROFEN 800 MG TABLET PO PRN (13:08)
[2017-10-24 13:38] VITALS: BP 114/71
== END 2017-10-24 13:20 | disposition home or self-care (01) ==
LOC: OROUT 08:11
PROVIDERS: ATTEND Obstetrics & Gynecology
PROC: 0U574ZZ Destruction of Bilateral Fallopian Tubes, Percutaneous Endoscopic Approach (ICD-10-PCS; principal; 2017-10-24 10:00)
DX: Z30.2 Encounter for sterilization (principal); Z79.899 Other long term (current) drug therapy; Z90.5 Acquired absence of kidney
CPT/HCPCS: 36415 ×2; 85027; 81005; 81025; 80048; 58670; J2250; J3490 ×4; J1100; J3010; J1885; J2405; J2704; J0131; 851; J1170

== ENCOUNTER 2019-05-27 12:07 | Emergency (ER) | payer BC, MEDICAID ==
[2019-05-27 12:24] VITALS: BP 142/90
[2019-05-27] MEDS ORDERED: ONDANSETRON 4 MG TAB.RAPDIS PO ONE (13:01)
[2019-05-27] MEDS ORDERED: ACETAMINOPHEN 325 MG TABLET PO ONE (13:01)
--- NOTE | 2019-05-27 13:11 | ER Document Report ---
HPI - HPI Patient complains to provider of: Head injury Time Seen by Provider: 05/27/19 12:51 Onset: This morning Onset/Duration: Sudden Quality of pain: Achy Pain Level: 3 Context: Patient states that she was going to the bathroom 330 this morning slipped on a wet floor fell hitting her head on the bathtub. Patient denies any loss of consciousness. Patient does complain of nausea and headache. Patient does report a previous history of intracranial bleed in the past but is uncertain what caused the bleeding as she was only 11 yrs old at the time. Patient states that when she was 11 she did fall from horse. Associated Symptoms: Headache, Nausea. denies: Vomiting Exacerbated by: Denies Relieved by: Denies Similar symptoms previously: Yes Recently seen / treated by doctor: No - ROS ROS below otherwise negative: Yes Systems Reviewed and Negative: Yes All other systems reviewed and negative - NEURO Neurology: REPORTS: Headache. DENIES: Weakness - RESPIRATORY Respiratory: DENIES: Coughing - GASTROINTESTINAL Gastrointestinal: REPORTS: Nausea. 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 Past Surgical History: Reports: Hx Section - x1, Hx Kidney (Renal Surgery) - R kidney removed - Immunizations Hx Diphtheria, Pertussis, Tetanus Vaccination: Yes Vertical Provider Document - CONSTITUTIONAL Agree With Documented VS: Yes Exam Limitations: No Limitations General Appearance: WD/WN, No Apparent Distress - INFECTION CONTROL TRAVEL OUTSIDE OF THE [place] IN LAST 30 DAYS: No - HEENT HEENT: Atraumatic, Normal ENT Exam, Normocephalic, PERRLA - NECK Neck: Normal Inspection, Supple. negative: Lymphadenopathy-Left, Lymphadenopathy-Right Notes: No cervical midline tenderness step-off or deformity - RESPIRATORY Respiratory: Breath Sounds Normal, No Respiratory Distress - CARDIOVASCULAR Cardiovascular: Regular Rate, Regular Rhythm - BACK Back: Normal Inspection Notes: No spinal midline tenderness step-off or deformity - MUSCULOSKELETAL/EXTREMETIES Musculoskeletal/Extremeties: MAEW, FROM, Non-Tender - NEURO Level of Consciousness: Awake, Alert, Appropriate Motor/Sensory: No Motor Deficit Notes: No focal neurologic deficit, cranial nerves II through XII intact - DERM Integumentary: Warm, Dry, No Rash Course - Re-evaluation Re-evalutation: 05/27/19 13:12 Head imaging was ordered given patient's concern regarding her previous intracranial hemorrhage. 05/27/19 13:44 CT scan reviewed, patient without any fracture or intracranial bleed. Patient without any focal neurologic deficit. Will treat for likely postconcussive syndrome at this time and encourage follow-up with her primary doctor for recheck. - Vital Signs Vital signs: Temp Pulse Resp BP Pulse Ox 98.9 F 105 H 17 142/90 H 98 05/27/19 12:22 05/27/19 12:22 05/27/19 12:22 05/27/19 12:22 05/27/19 12:22 - Diagnostic Test Radiology reviewed: Reports reviewed Discharge - Discharge Clinical Impression: Post concussion syndrome Head injury Qualifiers: Encounter type: initial encounter Qualified Code(s): S09.90XA - Unspecified injury of head, initial encounter Condition: Stable Disposition: HOME, SELF-CARE Instructions: Acetaminophen, Head Injury Precautions ([facility]), Post-Concussion Syndrome ([facility]) Additional Instructions: Return immediately for any new or worsening symptoms Followup with your primary care provider, call tomorrow to make a followup appointment Forms: Return to Work Referrals: FABIANA TAM MD [Primary Care Provider] - Follow up as needed
--- NOTE | 2019-05-27 13:37 | RADIOLOGY REPORT (SQ) ---
EXAM DESCRIPTION: CT HEAD WITHOUT COMPLETED DATE/TIME: 05/27/2019 1:28 pm REASON FOR STUDY: head injury COMPARISON: None. TECHNIQUE: Axial images acquired through the brain without intravenous contrast. Images reviewed wi th bone, brain and subdural windows. Additional sagittal and coronal reconstructions were generated. Images stored on PACS. All CT scanners at this facility use dose modulation, iterative reconstruction, and/or weight based d osing when appropriate to reduce radiation dose to as low as reasonably achievable (ALARA). [facility]: Dose Right [facility]: CareDose [facility]: Dose Right [facility]: Teradose 4D [facility]: JamStar RADIATION DOSE: CT Rad equipment meets quality standard of care and radiation dose reduction techniq ues were employed. CTDIvol: 53.2 mGy. DLP: 1097 mGy-cm. mGy. LIMITATIONS: None. FINDINGS: VENTRICLES: Normal size and contour. CEREBRUM: No masses. No hemorrhage. No midline shift. No evidence for acute infarction. Normal gra y/white matter differentiation. No areas of low density in the white matter. CEREBELLUM: No masses. No hemorrhage. No alteration of density. No evidence for acute infarction. EXTRAAXIAL SPACES: No fluid collections. No masses. ORBITS AND GLOBE: No intra- or extraconal masses. Normal contour of globe without masses. CALVARIUM: No fracture. PARANASAL SINUSES: No fluid or mucosal thickening. SOFT TISSUES: No mass or hematoma. OTHER: No other significant finding. IMPRESSION: NORMAL BRAIN CT WITHOUT CONTRAST. EVIDENCE OF ACUTE STROKE: NO. COMMENT: Quality ID # [id number]: Final reports with documentation of one or more dose reduction techniques (e.g., Automated exposure control, adjustment of the mA and/or kV according to patient size, use of iterative reconstruction technique) TECHNICAL DOCUMENTATION: JOB ID: [id number] [employer]- All Rights Reserved Reading location - IP/workstation name: [email or web address]
== END 2019-05-27 14:00 | disposition home or self-care (01) ==
LOC: ER 12:07
DX: S09.90XA Unspecified injury of head, initial encounter (principal); F07.81 Postconcussional syndrome; R51 Headache; W01.198A Fall on same level from slipping, tripping and stumbling with subsequent striking against other object, initial encounter; Y93.89 Activity, other specified; R11.0 Nausea; F17.200 Nicotine dependence, unspecified, uncomplicated
CPT/HCPCS: 99283; 70450; S0119

== ENCOUNTER 2019-12-20 05:38 | Day surgery (SDC) | payer BC, MEDICAID ==
[2019-12-17 12:34] LABS: HEMOGLOBIN 14.2 g/dL (12.0-15.5); MEAN CORPUSCULAR HGB CONC 33.9 g/dL (32.0-36.0); MEAN CORPUSCULAR VOLUME 89 fl (80-97); PLATELET COUNT 248 10^3/uL (150-450); RED BLOOD COUNT 4.74 10^6/uL (3.72-5.28); RED CELL DISTRIBUTION WIDTH 14.1 % (11.5-14.0); WHITE BLOOD COUNT 7.2 10^3/uL (4.0-10.5)
[2019-12-17 12:39] LABS: APPEARANCE,URINE CLEAR; BILIRUBIN,URINE NEGATIVE (NEGATIVE); COLOR,URINE YELLOW; GLUCOSE, URINE NEGATIVE (NEGATIVE); KETONES,URINE NEGATIVE (NEGATIVE); LEUKOCYTE ESTERASE,URINE NEGATIVE (NEGATIVE); NITRITE,URINE NEGATIVE (NEGATIVE); PROTEIN,URINE NEGATIVE (NEGATIVE); URINE SPECIFIC GRAVITY 1.016; UROBILINOGEN,URINE NEGATIVE mg/dL (<2.0)
[2019-12-17 12:57] LABS: ALBUMIN 4.6 g/dL (3.5-5.0); ALKALINE PHOSPHATASE 65 U/L (38-126); ANION GAP 8 (5-19); ASPARTATE AMINO TRANSFERASE 43 U/L (14-36); BILIRUBIN,TOTAL 0.6 mg/dL (0.2-1.3); BLOOD UREA NITROGEN 13 mg/dL (7-20); CALCIUM 9.8 mg/dL (8.4-10.2); CARBON DIOXIDE 26 mmol/L (22-30); CHLORIDE 102 mmol/L (98-107); GLUCOSE 107 mg/dL (75-110); POTASSIUM 4.8 mmol/L (3.6-5.0); TOTAL PROTEIN 7.6 g/dL (6.3-8.2)
[~2019-12-20 05:38] MED LIST changes: +CEFAZOLIN 1 GM/D5W RTU 1 GM/50 ML RTUPB IV ONE; +CEFAZOLIN 1 GM/D5W RTU 1 GM/50 ML RTUPB IV PRN; +LIDOCAINE 0.5% INJ-PF (5 MG/ML) 50 ML SDV SUBCUT PRN
[2019-12-20] MEDS ORDERED: DEXAMETHASONE SOD PHOSPHATE INJ 4 MG/1 ML VIAL ONE (06:19)
[2019-12-20] MEDS ORDERED: MIDAZOLAM 2 MG/2 ML INJ ONE (06:19)
[2019-12-20] MEDS ORDERED: SUGAMMADEX SODIUM 200 MG/2 ML SDV IV ONE (06:19)
[2019-12-20] MEDS ORDERED: FENTANYL CITRATE INJ/PF 100 MCG/2 ML AMPUL ONE (06:19)
[2019-12-20] MEDS ORDERED: ONDANSETRON HCL INJ/PF 4 MG/2 ML SDV ONE (06:19)
[2019-12-20] MEDS ORDERED: PROPOFOL INJ 200 MG/20 ML VIAL IV ONE (06:20)
[2019-12-20] MEDS ORDERED: LIDOCAINE 0.5% INJ-PF (5 MG/ML) 50 ML SDV ONE (06:23)
[2019-12-20] MEDS ORDERED: BUPIVACAINE HCL 0.25 % INJ/PF (2.5 MG/1 ML) 30 ML VIAL ONE (07:19)
[2019-12-20] MEDS ORDERED: PROMETHAZINE HCL INJ 25 MG/1 ML VIAL IV PRN ×3 (07:53→09:07)
[2019-12-20] MEDS ORDERED: MEPERIDINE HCL/PF INJ 25 MG/1 ML DISP.SYRIN IV PRN (07:53)
[2019-12-20] MEDS ORDERED: DIPHENHYDRAMINE HCL 50 MG/ML VIAL IV PRN (07:53)
[2019-12-20] MEDS ORDERED: FENTANYL CITRATE INJ/PF 100 MCG/2 ML AMPUL IV PRN ×3 (07:53)
[2019-12-20] MEDS ORDERED: MORPHINE SULFATE 10 MG/ML INJ IV PRN (07:53)
[2019-12-20] MEDS ORDERED: ONDANSETRON HCL INJ/PF 4 MG/2 ML SDV IV PRN (07:53)
[2019-12-20] MEDS ORDERED: OXYCODONE-ACETAMINOPHEN 5-325 MG TABLET PO PRN ×2 (09:06)
[2019-12-20] MEDS ORDERED: OXYCODONE-ACETAMINOPHEN 5-325 MG TABLET ONE (09:10)
--- NOTE | 2019-12-20 09:14 | Brief Operative Note ---
BRIEF OPERATIVE REPORT DATE OF SURGERY: 12/20/19 TIME OF SURGERY: 07:30 PREOPERATIVE DIAGNOSIS: Pelvic pain / Dysmenorrhea POSTOPERATIVE DIAGNOSIS: Uterine adenomyosis / Pelvic adhesions / Prior P.I.D. SURGEON: ANNALISE ARECHIGA FINDINGS: Old P.I.D. / Pelvic adhesions COMPLICATIONS: none ESTIMATED BLOOD LOSS: 25 cc TISSUE REMOVED OR ALTERED: Endometrium TECHNICAL PROCEDURE: D and C / Laparoscopy Patient was brought into the operating room and placed on the table in a supine position. She was then inducted under general anesthesia. Patient was repositioned in a dorsolithotomy position. Bladder was drained of approximately 300 cc of clear yellow urine. Pelvic under anesthesia was then performed. A weighted vaginal speculum was inserted into the vagina. Cervix is grasped as anteriorly with a single-tooth tenaculum. Cervix was dilated with Hegar dilators. This was sounded to 10 cm. Using a small curette the endometrial cavity was curetted and the specimen was sent to pathology. Tenaculum probe was then inserted into the endometrial cavity and clamped on the anterior lip of the cervix. The other equipment was removed. Attention was turned to the abdominal wall. Varies needle was inserted through the umbilicus and carried through the various layers until the abdominal cavity was entered. Approximately 4 L of CO2 were instilled injected. Opening pressures were 5 cm of water. A pressure of 15 cm of water were finally reached establishing a pneumoperitoneum. The varies needle was removed and a small incision was made infraumbilically. This incision a trocar and sleeve were inserted. Trocar was removed and the laparoscope was inserted. A second incision was made suprapubically in the midline. This incision a trocar and sleeve were inserted. The trocar was removed. A probe was inserted. Contents of the pelvis and abdomen were then video recorded with the above findings. The sleeve in the suprapubic incision was removed. There was no evidence of active bleeding. CO2 was then allowed to escape. The subumbilical sleeve was then removed. Approximately 4 cc of quarter percent Marcaine were injected in the subumbilical incision. 2 cc of quarter percent Marcaine were injected in the suprapubic incision. The subcutaneous tissue of the subumbilical incision was closed with 2-0. The subcutaneous tissue of the suprapubic incision was closed then with 2-0 Vicaryl. The skin incision of the subumbilical port was closed with a subcuticular using 4-0 Prolene. The supra pubic incision was closed with interrupted using 4-0 Prolene. The tenaculum probe was then removed from the uterus and cervix. Vaginal packing was inserted. There is a slight amount of oozing from the tenaculum site. This was treated with Monsel's. The bivalve vaginal speculum was removed. Placed in supine position and transferred to recovery room in satisfactory condition.
[2019-12-20 10:32] VITALS: BP 114/78
[2019-12-20] MEDS ORDERED: SUCCINYLCHOLINE CHLORIDE INJ 200 MG/10 ML VIAL ONE (14:03)
[2019-12-20] MEDS ORDERED: VECURONIUM BROMIDE INJ 10 MG VIAL IV ONE (14:03)
[2019-12-20] MEDS ORDERED: GLYCOPYRROLATE 1 MG/5 ML VIAL ONE (14:03)
[2019-12-20] MEDS ORDERED: NEOSTIGMINE METHYLSULFATE 10 MG/10 ML VIAL ONE (14:03)
== END 2019-12-20 10:20 | disposition home or self-care (01) ==
LOC: OROUT 05:38
PROVIDERS: ATTEND Obstetrics & Gynecology
DX: R10.2 Pelvic and perineal pain (principal); N94.6 Dysmenorrhea, unspecified; N80.0 Endometriosis of uterus; N73.6 Female pelvic peritoneal adhesions (postinfective)
CPT/HCPCS: 36415; 85027; 87635; 81025; 80053; 81001; 88305 ×2; 49320; 58120; J2250; J0690; J1100; J3010; J3490 ×3; J2710; J0330; J2405; J2704; C9803; 840